=== PATIENT | female | born 1965 | race Caucasian/White ===

== ENCOUNTER 2017-06-09 08:00 | Outpatient (CLI) | payer BC | END 2017-06-09 08:01 | disposition home or self-care (01) | LOC: BICMAMMO 08:00 | PROVIDERS: ATTEND Obstetrics & Gynecology | DX: Z12.31 Encounter for screening mammogram for malignant neoplasm of breast (principal) | CPT/HCPCS: 77063; 77067; G0202 ==

== ENCOUNTER 2018-02-17 15:04 | Outpatient (CLI) | payer BC ==
[2018-02-17 15:59] LABS: #Eosinphils 0.2 thou/uL (0.0-0.7); #Lymphocytes 1.8 thou/uL (1.20-3.40); #Monocytes 0.5 thou/uL (0.11-0.59); #Neutrophils 4.2 thou/uL (1.40-6.50); %Basophils 0.6 % (0.0-1.0); %Eosinophils 2.6 % (0.0-10.0); %Monocytes 6.9 % (0.0-10.0); %Neutrophils 62.8 % (42.0-75.0); Hemoglobin 13.4 g/dL (12.0-16.0); Mean Corpuscular HGB CONC 34.2 g/dL (32.0-36.0); Mean Corpuscular Hemoglobin 31.7 pg (27.0-31.0); Mean Corpuscular Volume 92.5 fL (78.0-98.0); Mean Platelet Volume 7.5 fL (7.4-10.4); Platelet Count 229 thou/uL (130-400); RBC Distribution Width 11.7 % (11.5-14.5); Red Blood Cell (RBC) Count 4.23 mill/uL (4.20-5.40); White Blood Cell (WBC) Count 6.7 thou/uL (4.8-10.8)
== END 2018-02-17 15:05 | disposition home or self-care (01) ==
LOC: LABBT 15:04
PROVIDERS: ATTEND Orthopaedic Surgery
DX: Z01.812 Encounter for preprocedural laboratory examination (principal); G56.02 Carpal tunnel syndrome, left upper limb
CPT/HCPCS: 85025

== ENCOUNTER 2018-02-22 07:38 | Day surgery (SDC) | payer BC ==
[2018-02-17 15:33] VITALS: BMI 36.2
[2018-02-22] MEDS ORDERED: Lidocaine 1% PF 5 ML VIAL ONE (09:22)
[2018-02-22] MEDS ORDERED: Fentanyl 100 MCG/2 ML VIAL ONE (09:23)
[2018-02-22] MEDS ORDERED: Propofol 500 MG/50 ML VIAL ONE (09:23)
[2018-02-22] MEDS ORDERED: Ketamine 50 MG/ML VIAL ONE (09:23)
[2018-02-22] MEDS ORDERED: Midazolam HCl 2 mg/2 ml Vial ONE (09:23)
[2018-02-22] MEDS ORDERED: Lidocaine 1% (PF) 30 ML VIAL ONE (09:24)
[2018-02-22] MEDS ORDERED: CEFAZOLIN/Water 2 GM/20 ML SYRINGE ONE (09:29)
[2018-02-22] MEDS ORDERED: Ondansetron HCl/PF 4 MG/2 ML Vial ONE (10:59)
--- NOTE | 2018-02-22 11:29 | OP ---
DATE OF PROCEDURE: 02/22/2018 PREOPERATIVE DIAGNOSIS: Left carpal tunnel syndrome. POSTOPERATIVE DIAGNOSIS: Left carpal tunnel syndrome. PROCEDURES PERFORMED: 1. Left open carpal tunnel release. 2. Placement of short arm volar splint left upper extremity. SURGEON: Vince Rajput M.D. BOX TRUCK WASHER: None. BLOOD LOSS: Minimal. COMPLICATIONS: None. ANESTHESIA: She had TIVA with local. CONDITION: She went to Day Stay in stable condition. INDICATIONS: Radha is a 53-year-old female who comes in with moderate to severe carpal tunnel syndro me on the left side. This has failed nonoperative treatment and at this time, she wished to have beverly violette. DESCRIPTION OF PROCEDURE: After all appropriate consent forms were explained and signed, the patient was taken back to the operating room and at this time was given IV sedation. A well-padded tourniqu et was placed on the left arm and the arm was then prepped and draped in the standard surgical fashio n. The incision was then drawn out and infiltrated with plain lidocaine. Limb was exsanguinated and tourniquet taken up to 250 mmHg. At this time, using Loupe magnification, a 15 blade was used to in cise down through skin. Bipolar cautery was used to coagulate any brisk venous bleeding. We then pl aced a small hemostat to protect the underlying median nerve and transected the transverse carpal lig ament using multiple 15 blades as well as scissors. Once this was done, a small finger was inserted to palpate for any remaining bands. At this time, a moist Ray-Chari sponge was placed into the wound. Tourniquet was let down and pressure was held. Bipolar cautery used to coagulate any brisk venous b leeding. The wound was then irrigated with saline solution and we then evaluated the nerve. The ner ve was found to be significantly injected, the nerve was intact, there were no masses noted, and the underlying flexor tendons were in good condition. At this time, we irrigated and dried the wound. W e then placed multiple nylon stitches to close the incision. A bulky sterile hand dressing and a sma ll volar splint were then made. The patient was then awakened and taken to recovery in stable condit ion. All counts were correct at the end of the case. The patient received preoperative IV antibioti cs.
[2018-02-22] MEDS ORDERED: Promethazine HCl 25 MG/ML VIAL ONE (12:25)
== END 2018-02-22 13:30 | disposition home or self-care (01) ==
LOC: SDC 07:38
PROVIDERS: ATTEND Orthopaedic Surgery
PROC: 01N50ZZ Release Median Nerve, Open Approach (ICD-10-PCS; principal; 2018-02-22)
DX: G56.02 Carpal tunnel syndrome, left upper limb (principal); M19.90 Unspecified osteoarthritis, unspecified site
CPT/HCPCS: 96374; 96375; J2001; J2250; J2405; J2550; J2704; J3010

== ENCOUNTER 2019-02-27 13:36 | Outpatient (CLI) | payer BC ==
--- NOTE | 2019-02-27 16:37 | MMO ---
Bilateral MAMMO Bilat Screen [facility]. CLINICAL HISTORY: Patient is 54 years old and is seen for screening. The patient has no family history of breast cancer. The patient has no personal history of cancer. VIEWS: The views performed were: bilateral craniocaudal with tomosynthesis and bilateral mediolateral oblique with tomosynthesis. FILMS COMPARED: The present examination has been compared to prior imaging studies performed at [facility] on 11/19/2009, 04/28/2011 and 06/09/2017, and at [facility] on 04/30/2016. MAMMOGRAM FINDINGS: There are scattered fibroglandular densities. There are stable intramammary lymph nodes seen in both breasts. There are no suspicious masses, suspicious calcifications, or new areas of architectural distortion. IMPRESSION: THERE IS NO MAMMOGRAPHIC EVIDENCE OF MALIGNANCY. A ROUTINE FOLLOW-UP MAMMOGRAM IN 1 YEAR IS RECOMMENDED. THE RESULTS OF THIS EXAM WERE SENT TO THE PATIENT. ACR BI-RADS Category 2 - Benign finding MAMMOGRAPHY NOTE: 1. A negative mammogram report should not delay a biopsy if a dominant of clinically suspicious mass is present. 2. Approximately 10% to 15% of breast cancers are not detected by mammography. 3. Adenosis and dense breasts may obscure an underlying neoplasm. Reported by: MIGUEL JACOBSEN MD Electonically Signed: [id number]
== END 2019-02-27 13:37 | disposition home or self-care (01) ==
LOC: BICMAMMO 13:36
PROVIDERS: ATTEND Family Medicine
DX: Z12.31 Encounter for screening mammogram for malignant neoplasm of breast (principal)
CPT/HCPCS: 77063; 77067

== ENCOUNTER 2019-06-07 06:43 | Outpatient (CLI) | payer BC ==
[2019-06-07 10:45] LABS: #Eosinphils 0.3 thou/uL (0.0-0.7); #Lymphocytes 2.1 thou/uL (1.20-3.40); #Monocytes 0.6 thou/uL (0.11-0.59); #Neutrophils 5.6 thou/uL (1.40-6.50); %Basophils 0.6 % (0.0-1.0); %Eosinophils 3.5 % (0.0-10.0); %Lymphocytes 24.3 % (21.0-51.0); %Neutrophils 64.7 % (42.0-75.0); Hemoglobin 13.5 g/dL (12.0-16.0); Mean Corpuscular HGB CONC 32.6 g/dL (32.0-36.0); Mean Corpuscular Hemoglobin 30.7 pg (27.0-31.0); Mean Corpuscular Volume 94.3 fL (78.0-98.0); Platelet Count 234 thou/uL (130-400); RBC Distribution Width 11.4 % (11.5-14.5); White Blood Cell (WBC) Count 8.6 thou/uL (4.8-10.8)
[2019-06-07 10:51] LABS: Bacteria/HPF None Seen HPF (None Seen); Bilirubin Negative (Negative); Blood, Urine Trace (Negative); Clarity Clear (Clear); Glucose, Urine (Dipstick) Normal (Negative); Leukocyte 75 Leu/uL (Negative); Nitrite Negative (Negative); Protein, Urine (Dipstick) Negative (Neg-Trace); RBC/HPF 0-3 HPF (0-3); Squamous Epithelial 0-3 HPF (0-3); Urobilinogen Normal mg/dL (Less than 2)
[2019-06-07 10:57] LABS: INR-International Normal Ratio 0.9; Prothrombin Time 12.5 SEC (12.0-14.7)
[2019-06-07 11:12] LABS: Anion Gap 11 mmol/L (10-20); BUN (Urea Nitrogen) 15 mg/dL (9.8-20.1); Calc. Creatinine Clearance 0 mL/min (70-130); Calcium 9.9 mg/dL (7.8-10.44); Carbon Dioxide 28 mmol/L (22-29); Chloride 105 mmol/L (98-107); Estimated GFR-MDRD 70; Glucose 88 mg/dL (70-105); Potassium 4.2 mmol/L (3.5-5.1); Sodium 140 mmol/L (136-145)
== END 2019-06-07 06:44 | disposition home or self-care (01) ==
LOC: LABBT 06:43
PROVIDERS: ATTEND Orthopaedic Surgery
DX: Z01.818 Encounter for other preprocedural examination (principal); M17.12 Unilateral primary osteoarthritis, left knee
CPT/HCPCS: 80048; 81001; 85025; 85610; 87081; 93005; 93010

== ENCOUNTER 2019-06-07 08:45 | Inpatient (IN) | payer BC ==
[2019-06-07 09:25] VITALS: BMI 38.6
[2019-06-18] MEDS ORDERED: Tranexamic Acid 1,000 MG/10 ML VIAL ONE ×2 (07:19→12:31)
[2019-06-18] MEDS ORDERED: Sodium Chloride 0.9% 100 ML ONE (07:19)
[2019-06-18] MEDS ORDERED: Vancomycin 1.5 GRAM/300 ML BAG 1.5 GM/300 ML BAG ONE (07:19)
[2019-06-18] MEDS ORDERED: Midazolam HCl 2 mg/2 ml Vial ONE (07:58)
[2019-06-18] MEDS ORDERED: Fentanyl 100 MCG/2 ML VIAL ONE ×2 (07:58→10:34)
[2019-06-18] MEDS ORDERED: Lidocaine 1% (PF) 30 ML VIAL ONE ×2 (08:31→09:59)
[2019-06-18] MEDS ORDERED: traMADol HCl 50 MG TAB PO PRN (09:12)
[2019-06-18] MEDS ORDERED: Promethazine HCl 25 MG/ML VIAL IM PRN ×3 (09:12→11:58)
[2019-06-18] MEDS ORDERED: Ondansetron PF 4 MG/2 ML Vial IVP PRN ×2 (09:12→10:15)
[2019-06-18] MEDS ORDERED: Zolpidem Tartrate 5 MG TAB PO PRN ×2 (09:12→10:15)
[2019-06-18] MEDS ORDERED: Ropivacaine HCl/PF 250 ML in Premix Bag 1 BAG NERVE BLCK SCH (09:12)
[2019-06-18] MEDS ORDERED: HYDROcodone/Acetaminophen 10/325 mg Tablet PO PRN (09:12)
[2019-06-18] MEDS ORDERED: Fentanyl 100 MCG/2 ML VIAL SLOW IVP PRN (09:13)
[2019-06-18] MEDS ORDERED: Acetaminophen 325 MG TAB PO PRN ×2 (09:14→10:15)
[2019-06-18] MEDS ORDERED: Bupivacaine PF 0.5% 30 ML VIAL ONE (09:36)
[2019-06-18] MEDS ORDERED: methylPREDNISolone Acetate 40 mg/ml Vial ONE (09:59)
[2019-06-18] MEDS ORDERED: diphenhydrAMINE 25 MG CAP PO PRN (10:15)
[2019-06-18] MEDS ORDERED: Tranexamic Acid 1,000 MG in Sodium Chloride 0.9% 100 ML IVPB SCH (10:15)
[2019-06-18] MEDS ORDERED: Ondansetron HCl/PF 4 MG/2 ML Vial IVP PRN (11:58)
[2019-06-18] MEDS ORDERED: HYDROmorphone 2 MG/ML VIAL SLOW IVP PRN (11:58)
[2019-06-18] MEDS ORDERED: Promethazine HCl 25 MG/ML VIAL SLOW IVP PRN (11:58)
[2019-06-18] MEDS ORDERED: Morphine Sulfate 2 MG/ML SYRINGE SLOW IVP PRN (11:58)
[2019-06-18] MEDS ORDERED: Meperidine HCl/PF 25 MG/ML VIAL SLOW IVP PRN (11:58)
[2019-06-18] MEDS ORDERED: PACU-Morphine 4MG/ML VIAL SLOW IVP PRN (11:58)
[2019-06-18] MEDS ORDERED: Ropivacaine 0.2% HCl/PF (40 MG/20 ML VIAL) ONE (13:24)
[2019-06-18] MEDS ORDERED: Ropivacaine 0.5% HCl/PF (150 MG/30 ML VIAL) ONE (13:24)
[2019-06-18] MEDS ORDERED: Lidocaine 1% PF 5 ML VIAL ONE (13:24)
[2019-06-18] MEDS ORDERED: Dexamethasone 20 MG/5 ML VIAL ONE (13:24)
[2019-06-18] MEDS ORDERED: PROPOFOL 200 MG/20 ML VIAL ONE (13:24)
[2019-06-18] MEDS ORDERED: Ondansetron PF 4 MG/2 ML Vial ONE (13:24)
[2019-06-18] MEDS: Ketorolac Tromethamine 30 MG/ML VIAL IVP SCH ×3 (14:12→23:19)
[2019-06-18] MEDS: CEFAZOLIN 2 GM in Premix Bag 1 BAG IVPB SCH ×2 (14:13→23:19)
--- NOTE | 2019-06-18 14:49 | OP ---
DATE OF PROCEDURE: 06/18/2019 BORE MILL OPERATOR FOR PLASTIC: Femi Lockett PA-C PREOPERATIVE DIAGNOSIS: Bilateral knee arthritis with the left being worse than the right. POSTOPERATIVE DIAGNOSIS: Bilateral knee arthritis with the left being worse than the right. PROCEDURES PERFORMED: 1. Left total knee replacement using Od[employer] pinless navigation. 2. Right knee corticosteroid injection. ESTIMATED BLOOD LOSS: Minimal. COMPLICATIONS: None. ANESTHESIA: The patient did have a general anesthetic as well as a preoperative block. IMPLANTS: To the left knee include a Odalis Triathlon total knee system. The femur was a size 3 cruciate-retaining femur. We used a size 3 primary tibial baseplate. We used a 3 x 9 mm CS X3 tibial bearing and a symmetric 27 x 8 X3 patella. DISPOSITION: She did go to recovery room in stable condition. INDICATIONS: This is a 54-year-old female, who has failed nonoperative treatment for her bilateral knee arthritis and at this time wished to have her left knee replaced and right knee injected. DESCRIPTION OF PROCEDURE: After all appropriate consent forms were explained and signed, she was taken back to the operating room and at the time was given a general anesthetic. Once the level of anesthesia was appropriate, the right knee was cleaned off with alcohol and 80 mg of Depo-Medrol with plain local was injected into the right knee. A Band-Aid was applied. After all appropriate consent forms were explained and signed, the patient was taken back to the operating room and at this time was given general anesthetic. Once the level of anesthesia was appropriate, a well-padded tourniquet was placed on the left leg, and the leg was then prepped and draped in standard surgical fashion. The limb was exsanguinated and tourniquet taken up to 300 mmHg. Midline incision was made with a 10 blade down through the skin and subcutaneous tissue. Bovie electrocautery was used to coagulate any brisk venous bleeding. A new blade was used to make a medial parapatellar arthrotomy. Small subperiosteal release was performed medially and excess fat pad was removed. The knee was flexed up to gain access to the femur. The femur was navigated and distal femoral resection was made. Epicondylar access was used to align our sizing jig and this was pinned in place. We sized our femur to be a size 3 cruciate-retaining femur. 4:1 cutting block was applied and pinned. Anterior and posterior chamfer cuts were then made. We navigated out our proximal tibia and made our proximal tibial resection. Spreaders were used to remove any posterior osteophytes off the back of the femur as well as remaining meniscal tissue. A long alignment gabbi was then used to achieve correct rotation of our tibial baseplate and we used a size 3 primary tibial baseplate was chosen. This was pinned in place. We trialed the polyethylene and we used a 3 x 9 mm CS X3 tibial bearing polyethylene gave us full extension and good stability throughout range of motion. Two towel clips and a saw were used to cut our patella. Three lug nuts were drilled and a symmetric 27 x 8 X3 patella was trialed which sat nicely in the trochlear groove. We then drilled our femur and punched our tibia. All components were removed. The knee was thoroughly irrigated and dried. Cement was mixed into the cement gun on the back table. Components were then placed. The knee was held out in full extension until the cement had dried. All excess bone cement was removed. Multiple #2 Vicryl stitches as well as a Quill were used to close our extensor mechanism. 0 Quill followed by a running Monoderm was then used to close the skin. Surgicel glue was then used on the skin. Once this had dried, soft tissue dressing was applied to the limb, tourniquet was let down, and the toes pinked up nicely. The patient was then awakened and taken to the recovery room in stable condition. All counts were correct at the end of the case. The patient did receive preoperative IV antibiotics. The patient was injected with Marcaine for postoperative pain relief. Job ID: [id number] [facility]
[2019-06-18] MEDS: Sodium Chloride 0.9% 1,000 ML IV SCH ×2 (18:55→21:42)
[2019-06-18] MEDS ORDERED: Vancomycin 1.5 GRAM/300 ML BAG 1.5 GM in Premix Bag 1 BAG IVPB SCH (19:00)
[2019-06-18] MEDS ORDERED: Vancomycin HCl 1.5 GM in Sodium Chloride 0.9% 250 ML 300 ML IVPB SCH (19:00)
[2019-06-18] MEDS: Aspirin 81 mg Enteric Coated Tablet PO SCH (20:05)
[2019-06-18] MEDS: Ferrous Gluconate 324 MG TAB PO SCH (20:05)
[2019-06-18] MEDS: Senokot S 8.6-50 MG TAB PO SCH (20:06)
[2019-06-18] MEDS: traMADol HCl 50 MG TAB PO PRN (20:09)
[2019-06-19] MEDS: Ketorolac Tromethamine 30 MG/ML VIAL IVP SCH ×4 (05:29→23:18)
[2019-06-19 05:37] LABS: Hemoglobin 11.3 g/dL (12.0-16.0); Mean Corpuscular HGB CONC 32.8 g/dL (32.0-36.0); Mean Corpuscular Hemoglobin 30.8 pg (27.0-31.0); Mean Corpuscular Volume 93.9 fL (78.0-98.0); Mean Platelet Volume 8.2 fL (7.4-10.4); Platelet Count 197 thou/uL (130-400); RBC Distribution Width 11.3 % (11.5-14.5); Red Blood Cell (RBC) Count 3.68 mill/uL (4.20-5.40); White Blood Cell (WBC) Count 15.1 thou/uL (4.8-10.8)
--- NOTE | 2019-06-19 06:43 | PDOC.HOSPP ---
- Subjective Encounter Date: 06/18/19 Encounter Time: 12:30 Subjective: Patient seen and examined in PACU. Pain controlled. Somnolent. Vitals stable - Objective Vital Signs & Weight: Vital Signs (12 hours) Temp Pulse Resp BP Pulse Ox 06/19/19 03:11 97.8 F 78 16 109/74 97 06/18/19 23:10 98.3 F 78 16 102/66 95 06/18/19 20:00 96 06/18/19 19:31 98.4 F 85 16 109/69 96 Weight Weight 208 lb I&O: 06/17/19 06/18/19 06/19/19 06:59 06:59 06:59 Intake Total 2430 Output Total 3450 Balance -1020 Result Diagrams: 06/19/19 04:49 Additional Labs: Laboratory Tests 02/19/19 02/19/19 02/19/19 07:49 07:49 07:49 BUN Creatinine Hemoglobin A1c 5.7 Cholesterol 163 LDL Cholesterol, Calc 88 25-OH Vitamin D Total 23.8 L 06/07/19 09:47 BUN 15 Creatinine 0.84 Hemoglobin A1c Cholesterol LDL Cholesterol, Calc 25-OH Vitamin D Total EKG Reviewed by me: Yes (Tele SR) Hospitalist ROS - Review of Systems Respiratory: denies: cough, dry, shortness of breath, hemoptysis, SOB with excertion, pleuritic pain, sputum, wheezing, other Cardiovascular: denies: chest pain, palpitations, orthopnea, paroxysmal noc. dyspnea, edema, light headedness, other - Medication Medications: Active Medications Generic Name Dose Route Start Last Admin Trade Name Freq PRN Reason Stop Dose Admin Hydrocodone Bitart/Acetaminophen 1 tab 06/18/19 09:12 06/19/19 03:27 [place] 10/325 PO 1 tab Q4H PRN Administration Pain (1-3) Aspirin 81 mg 06/18/19 21:00 06/18/19 20:05 Ecotrin PO 81 mg BID SAMANTHA Administration Fentanyl 50 mcg 06/18/19 09:13 06/18/19 22:14 Sublimaze SLOW IVP 50 mcg Q1H PRN Administration breakthrough pain Ferrous Gluconate 324 mg 06/18/19 21:00 06/18/19 20:05 Fergon PO 324 mg BID SAMANTHA Administration Sodium Chloride 1,000 mls @ 100 mls/hr 06/18/19 10:15 06/18/19 21:42 Normal Saline 0.9% IV Not Given .Q10H SAMANTHA Ketorolac Tromethamine 15 mg 06/18/19 12:00 06/19/19 05:29 Toradol IVP 06/20/19 06:01 15 mg Q6HR SAMANTHA Administration Senna/Docusate Sodium 2 tab 06/18/19 21:00 06/18/19 20:06 Senokot S PO 2 tab BID SAMANTHA Administration Tramadol HCl 50 mg 06/18/19 09:12 06/18/19 20:09 Ultram PO 50 mg Q6H PRN Administration Mild Pain (1-3) - Exam General Appearance: NAD Heart: RRR, no gallops Respiratory: CTAB, no rales Gastrointestinal: soft, non-tender, normal bowel sounds Extremities: no edema Hosp A/P - Plan DVT proph w/SCDs DJD Prediabetes Obesity BMI 38.7 h/o Vit D def CKD 2 PLAN: Add Vit D supp/MVM No need for sliding scale Will follow PRN PT/OT Cont supportive care
[2019-06-19] MEDS: Sodium Chloride 0.9% 1,000 ML IV SCH ×2 (06:49→18:39)
[2019-06-19] MEDS: Senokot S 8.6-50 MG TAB PO SCH ×2 (08:13→20:33)
[2019-06-19] MEDS: Ferrous Gluconate 324 MG TAB PO SCH ×2 (08:14→20:33)
[2019-06-19] MEDS: HYDROcodone/Acetaminophen 10/325 mg Tablet PO PRN ×2 (08:14→12:06)
[2019-06-19] MEDS: Aspirin 81 mg Enteric Coated Tablet PO SCH ×2 (08:14→20:33)
[2019-06-19] MEDS: Multivitamin W/ Minerals 1 TAB PO SCH (08:14)
--- NOTE | 2019-06-19 09:38 | PRG ---
DATE OF SERVICE: 06/19/2019 SUBJECTIVE: Radha is a 54-year-old female postop day 1 from left total knee arthroplasty. She is doing relatively well. Her pain is controlled. She ambulated about 26 feet yesterday evening postoperatively. OBJECTIVE: GENERAL: She is alert and oriented to person, place, time, and situation, responsive appropriate with examiner, nonfocal. EXTREMITIES: Her incision is clean. No strikethrough. She is neurovascularly intact in the right lower extremity. LABORATORY DATA: Hemoglobin and hematocrit 11.3 and 34.5. IMPRESSION: A 54-year-old female, postop day 1 left total knee arthroplasty, doing well. PLAN: Continue current care. Probable discharge home tomorrow. Job ID: [id number]
[2019-06-19] MEDS: Calcium Carbonate + Vit D 1 TAB PO SCH (18:07)
[2019-06-19] MEDS: traMADol HCl 50 MG TAB PO PRN (20:34)
[2019-06-20] MEDS: Sodium Chloride 0.9% 1,000 ML IV SCH (01:17)
[2019-06-20] MEDS: Ketorolac Tromethamine 30 MG/ML VIAL IVP SCH (05:26)
[2019-06-20 05:43] LABS: Hemoglobin 11.5 g/dL (12.0-16.0); Mean Corpuscular HGB CONC 33.3 g/dL (32.0-36.0); Mean Corpuscular Hemoglobin 31.4 pg (27.0-31.0); Mean Corpuscular Volume 94.5 fL (78.0-98.0); Mean Platelet Volume 7.8 fL (7.4-10.4); Platelet Count 194 thou/uL (130-400); RBC Distribution Width 11.4 % (11.5-14.5); Red Blood Cell (RBC) Count 3.65 mill/uL (4.20-5.40); White Blood Cell (WBC) Count 12.1 thou/uL (4.8-10.8)
[2019-06-20 07:37] VITALS: BP 107/64; TEMP 98.9
[2019-06-20] MEDS: HYDROcodone/Acetaminophen 10/325 mg Tablet PO PRN (08:17)
[2019-06-20] MEDS: Senokot S 8.6-50 MG TAB PO SCH (08:18)
[2019-06-20] MEDS: Multivitamin W/ Minerals 1 TAB PO SCH (08:19)
[2019-06-20] MEDS: Ferrous Gluconate 324 MG TAB PO SCH (08:19)
[2019-06-20] MEDS: Aspirin 81 mg Enteric Coated Tablet PO SCH (08:19)
[2019-06-20] MEDS: Calcium Carbonate + Vit D 1 TAB PO SCH (08:19)
[2019-06-20] MEDS ORDERED: Multivit, Therapeutic 1 TAB PO SCH (09:00)
== END 2019-06-20 11:30 | disposition home or self-care (01) | DRG 470 ==
LOC: SURG A 06-18 06:57 → SJJU 06-18 13:34
PROVIDERS: ADMIT Orthopaedic Surgery; ATTEND Orthopaedic Surgery
PROC: 0SRD0J9 Replacement of Left Knee Joint with Synthetic Substitute, Cemented, Open Approach (ICD-10-PCS; principal; 2019-06-18)
PROC: 3E0U33Z Introduction of Anti-inflammatory into Joints, Percutaneous Approach (ICD-10-PCS; 2019-06-18)
DX: M17.12 Unilateral primary osteoarthritis, left knee (principal); E66.9 Obesity, unspecified; N18.2 Chronic kidney disease, stage 2 (mild); R73.03 Prediabetes; Z98.51 Tubal ligation status; Z68.38 Body mass index [BMI] 38.0-38.9, adult
CPT/HCPCS: 36415; 85027; C1713; C1776; J0690; J1030; J1885; J2001; J2250; J2795; J3010; J3490; Q0163; S0020

== ENCOUNTER 2019-12-05 08:00 | Inpatient (IN) | payer BC ==
[2019-12-05 13:02] VITALS: BMI 34.9
[2019-12-10] MEDS ORDERED: Tranexamic Acid 1,000 MG/10 ML VIAL ONE ×2 (05:52→08:56)
[2019-12-10] MEDS ORDERED: Vancomycin 1.5 GRAM/300 ML BAG ONE (05:52)
[2019-12-10] MEDS ORDERED: Sodium Chloride 0.9% 100 ML ONE (05:52)
[2019-12-10] MEDS ORDERED: Fentanyl 100 MCG/2 ML VIAL ONE ×3 (06:09→09:38)
[2019-12-10] MEDS ORDERED: Midazolam HCl 2 mg/2 ml Vial ONE (06:32)
[2019-12-10] MEDS ORDERED: Lidocaine 1% (PF) 30 ML VIAL ONE (06:32)
[2019-12-10] MEDS ORDERED: Bupivacaine PF 0.5% 30 ML VIAL ONE ×2 (06:33→06:50)
[2019-12-10] MEDS ORDERED: Ropivacaine 0.2% HCl/PF 20 ML ONE (06:33)
[2019-12-10] MEDS ORDERED: Promethazine HCl 25 MG/ML VIAL ONE (07:12)
[2019-12-10] MEDS ORDERED: Ondansetron PF 4 MG/2 ML Vial IVP PRN ×2 (07:27→08:10)
[2019-12-10] MEDS ORDERED: Zolpidem Tartrate 5 MG TAB PO PRN ×2 (07:27→08:10)
[2019-12-10] MEDS ORDERED: Fentanyl 100 MCG/2 ML VIAL SLOW IVP PRN (07:27)
[2019-12-10] MEDS ORDERED: Acetaminophen 325 MG TAB PO PRN (07:27)
[2019-12-10] MEDS ORDERED: diphenhydrAMINE 25 MG CAP PO PRN (07:27)
[2019-12-10] MEDS ORDERED: Promethazine HCl 25 MG/ML VIAL IM PRN ×3 (07:27→09:06)
[2019-12-10] MEDS ORDERED: traMADol HCl 50 MG TAB PO PRN ×3 (07:27→08:10)
[2019-12-10] MEDS ORDERED: HYDROcodone/Acetaminophen 10/325 mg Tablet PO PRN ×3 (07:27→08:10)
[2019-12-10] MEDS ORDERED: Tranexamic Acid 1,000 MG in Sodium Chloride 0.9% 100 ML IVPB SCH (07:30)
[2019-12-10] MEDS ORDERED: Fentanyl 100 MCG/2 ML VIAL IV PRN (08:11)
[2019-12-10] MEDS ORDERED: Promethazine HCl 25 MG/ML VIAL SLOW IVP PRN (09:06)
[2019-12-10] MEDS ORDERED: Ondansetron HCl/PF 4 MG/2 ML Vial IVP PRN (09:06)
[2019-12-10] MEDS ORDERED: Meperidine HCl/PF 25 MG/ML VIAL ONE (09:14)
--- NOTE | 2019-12-10 09:27 | OP ---
DATE OF PROCEDURE: 12/10/2019 SCARIFIER OPERATOR: Femi Lockett PA-C PREOPERATIVE DIAGNOSIS: Right knee osteoarthrosis. POSTOPERATIVE DIAGNOSIS: Right knee osteoarthrosis. PROCEDURE: Right total knee replacement using Interfolio pinless navigation system. ANESTHESIA: General anesthetic as well as preoperative block. BLOOD LOSS: Minimal. COMPLICATIONS: None. TOURNIQUET TIME: DISPOSITION: She did go to recovery room in stable condition. IMPLANTS: To the right knee include a triathlon total knee system. The femur was a size 3 right cruciate-retaining femur. We used a size 3 primary tibial baseplate. We used a 3 x 9 mm CS tibial bearing, and we used a 27 x 8 symmetric X3 patella. INDICATIONS: Radha is a 54-year-old active female who has been very happy with her left knee replacement and at this time wished to have her right knee replaced secondary to years of pain and problem with knee osteoarthrosis. PROCEDURE IN DETAIL: After all appropriate consent forms were explained and signed, the patient was taken back to the operating room and at this time was given general anesthetic. Once the level of anesthesia was appropriate, a well-padded tourniquet was placed on the right leg, and the leg was then prepped and draped in standard surgical fashion. The limb was exsanguinated and tourniquet taken up to 300 mmHg. Midline incision was made with a 10 blade down through the skin and subcutaneous tissue. Bovie electrocautery was used to coagulate any brisk venous bleeding. A new blade was used to make a medial parapatellar arthrotomy. Small subperiosteal release was performed medially and excess fat pad was removed. The knee was flexed up to gain access to the femur. The femur was navigated and distal femoral resection was made. Epicondylar access was used to align our sizing jig and this was pinned in place. We sized our femur to be a size 3 right cruciate-retaining femur. 4:1 cutting block was applied and pinned. Anterior and posterior chamfer cuts were then made. We navigated out our proximal tibia and made our proximal tibial resection. Spreaders were used to remove any posterior osteophytes off the back of the femur as well as remaining meniscal tissue. A long alignment gabbi was then used to achieve correct rotation of our tibial baseplate and a size 3 primary tibial baseplate was chosen. This was pinned in place. We trialed the polyethylene and a 3 x 9 mm CS tibial-bearing polyethylene gave us full extension and good stability throughout range of motion. Two towel clips and a saw were used to cut our patella. Three lug nuts were drilled and 27 x 8 Symmetric X3 patella was trialed which sat nicely in the trochlear groove. We then drilled our femur and punched our tibia. All components were removed. The knee was thoroughly irrigated and dried. Cement was mixed into the cement gun on the back table. Components were then placed. The knee was held out in full extension until the cement had dried. All excess bone cement was removed. Multiple #2 Vicryl stitches as well as a Quill were used to close our extensor mechanism. 0 Quill followed by a running Monoderm was then used to close the skin. Surgicel glue was then used on the skin. Once this had dried, soft tissue dressing was applied to the limb, tourniquet was let down, and the toes pinked up nicely. The patient was then awakened and taken to the recovery room in stable condition. All counts were correct at the end of the case. The patient did receive preoperative IV antibiotics. The patient was injected with Marcaine for postoperative pain relief. Job ID: [id number]
[2019-12-10] MEDS ORDERED: Ketorolac Tromethamine 30 MG/ML VIAL ONE (09:50)
[2019-12-10] MEDS ORDERED: PROPOFOL 200 MG/20 ML VIAL ONE (11:10)
[2019-12-10] MEDS ORDERED: Dexamethasone 20 MG/5 ML VIAL ONE (11:10)
[2019-12-10] MEDS ORDERED: Lidocaine 1% PF 5 ML VIAL ONE (11:10)
[2019-12-10] MEDS ORDERED: PHENYLEPHRINE-NS 100 MCG/ML 10 ML SYRINGE ONE (11:10)
[2019-12-10] MEDS ORDERED: Ropivacaine 0.2% HCl/PF (40 MG/20 ML VIAL) ONE (11:10)
[2019-12-10] MEDS ORDERED: Ondansetron PF 4 MG/2 ML Vial ONE (11:10)
[2019-12-10] MEDS ORDERED: Bupivacaine HCl 0.5%/Epinephrine 1:200,000/PF 30 ml Vial ONE (11:10)
[2019-12-10] MEDS: Aspirin 81 mg Enteric Coated Tablet PO SCH ×2 (11:21→20:07)
[2019-12-10] MEDS: Sodium Chloride 0.9% 1,000 ML IV SCH ×3 (11:22→20:11)
[2019-12-10] MEDS: Ketorolac Tromethamine 30 MG/ML VIAL IVP SCH ×3 (12:59→23:04)
[2019-12-10] MEDS ORDERED: CEFAZOLIN 2 GM in Premix Bag 1 BAG IVPB SCH (14:00)
[2019-12-10] MEDS ORDERED: Ketorolac Tromethamine 30 MG/ML VIAL IVP SCH (14:00)
[2019-12-10] MEDS: CEFAZOLIN 2 GM in Premix Bag 1 BAG IVPB SCH ×2 (15:24→23:04)
[2019-12-10] MEDS ORDERED: Vancomycin 1.5 GRAM/300 ML BAG 1.5 GM in Premix Bag 1 BAG IVPB SCH ×2 (18:00→20:00)
--- NOTE | 2019-12-10 20:10 | PDOC.HOSPP ---
- Subjective Encounter Date: 12/10/19 Encounter Time: 18:00 Subjective: Patient seen and examined for med mngt. Pain controlled. No CP/SOB/Palpitation. No new complaints. No overnight events - Objective Vital Signs & Weight: Vital Signs (12 hours) Temp Pulse Resp BP Pulse Ox 12/10/19 20:05 98.4 F 73 16 107/71 96 12/10/19 10:50 97.6 F 77 16 143/83 H 98 Weight Weight 209 lb 15.986 oz I&O: 12/09/19 12/10/19 12/11/19 06:59 06:59 06:59 Intake Total 1800 Output Total 1900 Balance -100 Additional Labs: Laboratory Tests 10/15/19 12/05/19 12/05/19 14:40 12:03 12:03 Hgb 13.4 Hct 41.4 BUN 13 Creatinine 0.91 25-OH Vitamin D Total 25.5 L EKG Reviewed by me: Yes (SR) Hospitalist ROS - Review of Systems Respiratory: denies: cough, dry, shortness of breath, hemoptysis, SOB with excertion, pleuritic pain, sputum, wheezing, other Cardiovascular: denies: chest pain, palpitations, orthopnea, paroxysmal noc. dyspnea, edema, light headedness, other Gastrointestinal: denies: nausea, vomiting, abdominal pain, diarrhea, constipation, melena, hematochezia, other - Medication Medications: Active Medications Generic Name Dose Route Start Last Admin Trade Name Freq PRN Reason Stop Dose Admin Hydrocodone Bitart/Acetaminophen 2 tab 12/10/19 08:10 12/10/19 11:18 [place] 10/325 PO 2 tab Q4H PRN Administration PAIN (4-6) Aspirin 81 mg 12/10/19 09:00 12/10/19 20:07 Ecotrin PO 81 mg BID SAMANTHA Administration Diphenhydramine HCl 25 mg 12/10/19 07:27 12/10/19 13:01 Benadryl PO 25 mg Q6H PRN Administration Itching Fentanyl 50 mcg 12/10/19 08:11 12/10/19 11:18 Sublimaze IV 50 mcg Q1H PRN Administration Breakthrough Pain Sodium Chloride 1,000 mls @ 100 mls/hr 12/10/19 07:30 12/10/19 20:07 Normal Saline 0.9% IV Not Given .Q10H SAMANTHA Cefazolin Sodium/Dextrose 2 gm 50 mls @ 100 mls/hr 12/10/19 15:00 12/10/19 15 :24 / Device IVPB 12/10/19 23:29 50 mls Q8H SAMANTHA Administration Vancomycin HCl 1.5 gm/ Device 300 mls @ 200 mls/hr 12/10/19 20:00 12/10/19 20 :07 IVPB 12/10/19 21:29 300 mls 2000 SAMANTHA Administration Ketorolac Tromethamine 30 mg 12/10/19 12:00 12/10/19 18:47 Toradol IVP 12/12/19 06:01 30 mg Q6HR SAMANTHA Administration - Exam General Appearance: NAD Heart: RRR, no gallops Respiratory: no wheezes, no rales Gastrointestinal: non-tender, non-distended, normal bowel sounds Extremities: no cyanosis Neurological: no new deficit Hosp A/P - Plan DVT proph w/SCDs Anxiety Diverticulosis DJD Prediabetes Vitamin D deficiency CKD 2 Obesity BMI 34.9 PLAN: Add MVM Add Vit D supp Cont PT/OT Cont supportive care IS DVT prophylaxis
[2019-12-10] MEDS ORDERED: Polyethylene Glycol 3350 17 GM Packet PO PRN (20:22)
[2019-12-10] MEDS: HYDROcodone/Acetaminophen 10/325 mg Tablet PO PRN (23:14)
[2019-12-11] MEDS: Sodium Chloride 0.9% 1,000 ML IV SCH ×3 (04:30→21:51)
[2019-12-11 05:37] LABS: Hemoglobin 10.5 g/dL (12.0-16.0); Mean Corpuscular HGB CONC 32.3 g/dL (32.0-36.0); Mean Corpuscular Hemoglobin 30.3 pg (27.0-31.0); Mean Corpuscular Volume 93.8 fL (78.0-98.0); Mean Platelet Volume 8.3 fL (7.4-10.4); Platelet Count 194 thou/uL (130-400); RBC Distribution Width 11.9 % (11.5-14.5); Red Blood Cell (RBC) Count 3.47 mill/uL (4.20-5.40); White Blood Cell (WBC) Count 13.2 thou/uL (4.8-10.8)
[2019-12-11] MEDS: Ketorolac Tromethamine 30 MG/ML VIAL IVP SCH ×4 (06:03→23:53)
[2019-12-11] MEDS: Multivit, Therapeutic 1 TAB PO SCH (07:50)
[2019-12-11] MEDS: Senokot S 8.6-50 MG TAB PO SCH ×2 (08:10→19:45)
[2019-12-11] MEDS: Multivitamin W/ Minerals 1 TAB PO SCH (08:10)
[2019-12-11] MEDS: Ferrous Gluconate 324 MG TAB PO SCH ×2 (08:10→17:35)
[2019-12-11] MEDS: Calcium Carbonate 600 MG + Vit D TAB PO SCH ×2 (08:10→17:35)
[2019-12-11] MEDS: Aspirin 81 mg Enteric Coated Tablet PO SCH ×2 (08:11→19:45)
[2019-12-11] MEDS: Ropivacaine HCl/PF 250 ML in Premix Bag 1 BAG NERVE BLCK SCH (10:09)
[2019-12-11] MEDS: HYDROcodone/Acetaminophen 10/325 mg Tablet PO PRN (19:58)
[2019-12-12 05:34] LABS: Hemoglobin 10.1 g/dL (12.0-16.0); Mean Corpuscular Hemoglobin 30.5 pg (27.0-31.0); Mean Corpuscular Volume 95.3 fL (78.0-98.0); Platelet Count 151 thou/uL (130-400); White Blood Cell (WBC) Count 7.6 thou/uL (4.8-10.8)
[2019-12-12] MEDS: Ferrous Gluconate 324 MG TAB PO SCH (08:42)
[2019-12-12] MEDS: Calcium Carbonate 600 MG + Vit D TAB PO SCH (08:42)
[2019-12-12] MEDS: Aspirin 81 mg Enteric Coated Tablet PO SCH (08:42)
[2019-12-12] MEDS: Senokot S 8.6-50 MG TAB PO SCH (08:42)
[2019-12-12] MEDS: Multivit, Therapeutic 1 TAB PO SCH (08:42)
[2019-12-12] MEDS: Multivitamin W/ Minerals 1 TAB PO SCH (08:42)
[2019-12-12] MEDS: Ropivacaine HCl/PF 250 ML in Premix Bag 1 BAG NERVE BLCK SCH (09:13)
[2019-12-12] MEDS: HYDROcodone/Acetaminophen 10/325 mg Tablet PO PRN ×2 (09:19→15:35)
[2019-12-12] MEDS: Sodium Chloride 0.9% 1,000 ML IV SCH (09:30)
[2019-12-12] MEDS: Ketorolac Tromethamine 30 MG/ML VIAL IVP SCH (10:29)
[2019-12-12 15:46] VITALS: BP 122/79; TEMP 98.5
--- NOTE | 2019-12-12 16:40 | PRG ---
DATE OF SERVICE: 12/11/2019 SUBJECTIVE: Radha is a 54-year-old female, postop day 1 from a right total knee arthroplasty. She is doing very well. She is comfortable without complaints this morning. She ambulated approximately 200 feet in the evening of surgery. OBJECTIVE: VITAL SIGNS: Temperature 98.8, pulse 60, respiratory rate 16, O2 saturation is 96% on room air, and blood pressure 110/72. GENERAL: She is alert and oriented to person, place, time and situation, responsive, and appropriate with examiner. SKIN: Her incision is clean without erythema. EXTREMITIES: She is neurovascularly intact in the right lower extremity. LABORATORY DATA: Hemoglobin and hematocrit of 10.5 and 32.6. IMPRESSION: 54-year-old female, postop day 1 right total knee arthroplasty, doing well. PLAN: Continue current care. Discharge tomorrow. Job ID: [id number]
== END 2019-12-12 16:50 | disposition home or self-care (01) | DRG 470 ==
LOC: SJJU 12-10 05:27
PROVIDERS: ADMIT Orthopaedic Surgery; ATTEND Orthopaedic Surgery
PROC: 0SRC0J9 Replacement of Right Knee Joint with Synthetic Substitute, Cemented, Open Approach (ICD-10-PCS; principal; 2019-12-10)
DX: M17.11 Unilateral primary osteoarthritis, right knee (principal); F41.9 Anxiety disorder, unspecified; K57.90 Diverticulosis of intestine, part unspecified, without perforation or abscess without bleeding; R73.03 Prediabetes; N18.2 Chronic kidney disease, stage 2 (mild); E55.9 Vitamin D deficiency, unspecified; E66.9 Obesity, unspecified; Z96.652 Presence of left artificial knee joint; Z98.51 Tubal ligation status; Z68.34 Body mass index [BMI] 34.0-34.9, adult
CPT/HCPCS: 36415; 85027; C1713; C1776; J0670; J0690; J1100; J1885; J2001; J2175; J2250; J2405; J2550; J2704; J2795; J3010; J3370; J3490; Q0163; S0020

== ENCOUNTER 2019-12-05 11:03 | Outpatient (CLI) | payer BC, OTHER ==
[2019-12-05 14:00] LABS: #Eosinphils 0.2 thou/uL (0.0-0.7); #Lymphocytes 1.7 thou/uL (1.20-3.40); #Monocytes 0.4 thou/uL (0.11-0.59); #Neutrophils 4.8 thou/uL (1.40-6.50); %Basophils 0.5 % (0.0-1.0); %Eosinophils 3.1 % (0.0-10.0); %Lymphocytes 23.9 % (21.0-51.0); %Monocytes 5.6 % (0.0-10.0); %Neutrophils 66.8 % (42.0-75.0); Hemoglobin 13.4 g/dL (12.0-16.0); Mean Corpuscular HGB CONC 32.4 g/dL (32.0-36.0); Mean Corpuscular Hemoglobin 30.6 pg (27.0-31.0); Mean Corpuscular Volume 94.6 fL (78.0-98.0); Mean Platelet Volume 8.2 fL (7.4-10.4); Platelet Count 230 thou/uL (130-400); RBC Distribution Width 11.9 % (11.5-14.5); Red Blood Cell (RBC) Count 4.37 mill/uL (4.20-5.40); White Blood Cell (WBC) Count 7.1 thou/uL (4.8-10.8)
[2019-12-05 14:01] LABS: Prothrombin Time 12.7 sec (12.0-14.7)
[2019-12-05 14:12] LABS: Bacteria/HPF None Seen HPF (None Seen); Bilirubin Negative (Negative); Blood, Urine Negative (Negative); Clarity Clear (Clear); Glucose, Urine (Dipstick) Normal (Negative); Leukocyte Negative Leu/uL (Negative); Nitrite Negative (Negative); Protein, Urine (Dipstick) Negative (Neg-Trace); RBC/HPF 0-3 HPF (0-3); Squamous Epithelial 0-3 HPF (0-3); Urobilinogen Normal mg/dL (Less than 2); WBC/HPF 0-3 HPF (0-3)
[2019-12-05 14:13] LABS: Anion Gap 12 mmol/L (10-20); BUN (Urea Nitrogen) 13 mg/dL (9.8-20.1); Calc. Creatinine Clearance 0 mL/min (70-130); Calcium 9.3 mg/dL (7.8-10.44); Carbon Dioxide 28 mmol/L (22-29); Chloride 105 mmol/L (98-107); Estimated GFR-MDRD 64; Glucose 129 mg/dL (70-105); Potassium 4.3 mmol/L (3.5-5.1); Sodium 141 mmol/L (136-145)
== END 2019-12-05 11:04 | disposition home or self-care (01) ==
LOC: LABBT 11:03
PROVIDERS: ATTEND Orthopaedic Surgery
DX: Z01.812 Encounter for preprocedural laboratory examination (principal); Z11.59 Encounter for screening for other viral diseases; M17.11 Unilateral primary osteoarthritis, right knee
CPT/HCPCS: 80048; 81001; 85025; 85610; 87081; 87635; 93005; 93010; U0003

== ENCOUNTER 2023-02-10 19:57 | Emergency (ER) | payer BC ==
[2023-02-10] MEDS ORDERED: Ketorolac Tromethamine 30 MG/ML VIAL ONE (20:35)
[2023-02-10 20:40] LABS: #Eosinphils 0.2 thou/uL (0.0-0.7); #Monocytes 0.7 thou/uL (0.11-0.59); #Neutrophils 4.5 thou/uL (1.40-6.50); %Basophils 0.5 % (0.0-1.0); %Eosinophils 2.9 % (0.0-10.0); %Lymphocytes 27.3 % (21.0-51.0); %Monocytes 9.2 % (0.0-10.0); %Neutrophils 59.8 % (42.0-75.0); Hematocrit 40.4 % (36.0-47.0); Hemoglobin 13.1 g/dL (12.0-16.0); Mean Corpuscular HGB CONC 32.4 g/dL (32.0-36.0); Mean Corpuscular Hemoglobin 30.3 pg (27.0-31.0); Mean Corpuscular Volume 93.5 fl (78.0-98.0); Platelet Count 239 10x3/uL (130-400); RBC Distribution Width 13.1 % (11.5-14.5); Red Blood Cell (RBC) Count 4.32 mill/uL (4.20-5.40); White Blood Cell (WBC) Count 7.5 10x3/uL (4.8-10.8)
[2023-02-10 21:06] LABS: ALT (SGPT) 19 U/L (8-55); AST (SGOT) 18 U/L (5-34); Albumin 4.6 g/dL (3.5-5.0); Alkaline Phosphatase 75 U/L (40-110); Anion Gap 10 mmol/L (10-20); BUN (Urea Nitrogen) 18 mg/dL (9.8-20.1); Bilirubin, Total 0.3 mg/dL (0.2-1.2); Calc. Creatinine Clearance 0 mL/min (70-130); Calcium 10.1 mg/dL (7.8-10.44); Carbon Dioxide 29 mmol/L (22-29); Chloride 103 mmol/L (98-107); Estimated GFR 67; Globulin 3.2 g/dL (2.4-3.5); Glucose 91 mg/dL (70-105); Lipase 17 U/L (8-78); Potassium 3.8 mmol/L (3.5-5.1); Protein, Total 7.8 g/dL (6.0-8.3); Sodium 138 mmol/L (136-145)
[2023-02-10 21:07] LABS: Troponin I Less than 0.010 ng/mL (< 0.028)
[2023-02-10] MEDS ORDERED: Ondansetron PF 4 MG/2 ML Vial ONE (21:54)
[2023-02-10] MEDS ORDERED: Morphine 4 MG/ML VIAL ONE (21:54)
== END 2023-02-10 22:47 | disposition home or self-care (01) ==
LOC: ERS 19:57
DX: K80.20 Calculus of gallbladder without cholecystitis without obstruction (principal)
CPT/HCPCS: 71045; 76705; 80053; 83690; 84484; 85025; 93005; 96374; 96375; J1885; J2270; J2405